=== PATIENT | male | born 1995 | race Caucasian/White ===

== ENCOUNTER 2017-04-05 17:52 | Emergency (ER) | payer BC ==
[~2017-04-05] VITALS: Ht 182.9 cm; Wt 64.0 kg
[2017-04-05 18:03] VITALS: PULSE 96; RESP 16; TEMP 100; O2SAT 99
[2017-04-05] MEDS ORDERED: SODIUM CHLOR 0.9% 1000 ML INJ 1,000 ML IV ONE ×2 (18:30→20:00)
[2017-04-05] MEDS ORDERED: KETOROLAC TROMETHAMINE 30 MG/ML (IVP) VIAL IV PUSH ONE ×2 (18:30→20:00)
[2017-04-05 18:32] VITALS: O2SAT 98
--- NOTE | 2017-04-05 18:32 | PD ---
HPI Chief Complaint: Cold / Flu Symptoms Time Seen by Provider: 18:23 Travel History International Travel<30 days: No Contact w/Intl Traveler<30days: No Traveled to known affect area: No History of Present Illness HPI PATIENT WAS AROUND KIDS WHO WERE FLU POSITIVE A FEW DAYS AGO, AND THEN 2 DAYS LATER HE STARTED TO HAVE SEVERE LEG CRAMPS AND N/V WITH TAKING MOTRIN, MOTHER IS A PHYSICIAN IN [place]. AND CHILD HAS BEEN ON TAMIFLU OVER THE PAST 2 DAYS. NO PREVIOUS VISITS ATTEMPTED TO CHECK CHART, DID TAXICAB DISPATCHER NOTES PMHX: DENIES PSHX: DENIES ALL: DENIES PFSH Social History Alcohol Use: No Tobacco Use: No Allergies-Medications (Allergen,Severity, Reaction): Coded Allergies: No Known Allergies (Unverified , 04/05/17) Reported Meds & Prescriptions Reported Meds & Active Scripts Active Ketorolac (Ketorolac Tromethamine) 10 Mg Tab 10 Mg PO Q6HR PRN Zofran Odt (Ondansetron Odt) 4 Mg Tab 4 Mg SL Q6HR PRN Reported Dulera 120 Act Inh (Mometasone-Formoterol 120 Act Inh) 200-5 Mcg/Act Inh 2 Puff INH BID Tamiflu (Oseltamivir Phosphate) 45 Mg Cap 45 Mg PO DAILY Review of Systems Except as stated in HPI: all other systems reviewed are Neg General / Constitutional: No: Fever Eyes: No: Visual changes HENT: No: Headaches Cardiovascular: No: Chest Pain or Discomfort Respiratory: No: Shortness of Breath Gastrointestinal: Positive: Nausea, Vomiting Genitourinary: No: Dysuria Musculoskeletal: Positive: Myalgias Skin: No Rash Neurologic: No: Weakness Psychiatric: No: Depression Endocrine: No: Polydipsia Hematologic/Lymphatic: No: Easy Bruising Physical Exam Narrative GENERAL: SKIN: Warm and dry. NO RASH HEAD: Atraumatic. Normocephalic. EYES: Pupils equal and round. No scleral icterus. No injection or drainage. ENT: No nasal bleeding or discharge. Mucous membranes pink and moist. NECK: Trachea midline. No JVD. CARDIOVASCULAR: Regular rate and rhythm. RESPIRATORY: No accessory muscle use. Clear to auscultation. Breath sounds equal bilaterally. GASTROINTESTINAL: Abdomen soft, non-tender, nondistended. Hepatic and splenic margins not palpable. MUSCULOSKELETAL: Extremities without clubbing, cyanosis, or edema. No obvious deformities. NO FIRM COMPARTMENTS PALPATED BUT TENDER TO TOUCH NEUROLOGICAL: Awake and alert. No obvious cranial nerve deficits. Motor grossly within normal limits. Five out of 5 muscle strength in the arms and legs. Normal speech. PSYCHIATRIC: Appropriate mood and affect; insight and judgment normal. Data Data Last Documented VS Vital Signs Date Time Temp Pulse Resp B/P (MAP) Pulse Ox O2 Delivery O2 Flow Rate FiO2 04/05/17 21:18 99.0 57 14 110/48 (68) 97 04/05/17 19:06 Room Air Orders Orders Complete Blood Count With Diff (04/05/17:) Comprehensive Metabolic Panel (04/05/17) Creatine Kinase (Cpk) (04/05/17) Blood Culture (04/05/17) C-Reactive Protein (Crp) (04/05/17) Urinalysis - C+S If Indicated (04/05/17 18:23) Iv Access Insert/Monitor (04/05/17 18:23) Ecg Monitoring (04/05/17:) Oximetry (04/05/17) Sodium Chlor 0.9% 1000 Ml Inj (Ns 1000 M (04/05/17 18:30) Ketorolac Inj (Toradol Inj) (04/05/17 18:30) Lipase (04/05/17:23) Thyroid Stimulating Hormone (04/05/17:23) Sodium Chlor 0.9% 1000 Ml Inj (Ns 1000 M (04/05/17 20:00) Ketorolac Inj (Toradol Inj) (04/05/17 20:00) Ed Discharge Order (04/05/17 20:59) Labs Laboratory Tests Test 04/05/17 18:50 04/05/17 19:45 White Blood Count 10.7 TH/MM3 Red Blood Count 4.84 MIL/MM3 Hemoglobin 13.0 GM/DL Hematocrit 39.9 % Mean Corpuscular Volume 82.4 FL Mean Corpuscular Hemoglobin 26.8 PG Mean Corpuscular Hemoglobin Concent 32.6 % Red Cell Distribution Width 12.6 % Platelet Count 234 TH/MM3 Mean Platelet Volume 9.1 FL Neutrophils (%) (Auto) 80.4 % Lymphocytes (%) (Auto) 10.6 % Monocytes (%) (Auto) 8.5 % Eosinophils (%) (Auto) 0.0 % Basophils (%) (Auto) 0.5 % Neutrophils # (Auto) 8.6 TH/MM3 Lymphocytes # (Auto) 1.1 TH/MM3 Monocytes # (Auto) 0.9 TH/MM3 Eosinophils # (Auto) 0.0 TH/MM3 Basophils # (Auto) 0.1 TH/MM3 CBC Comment DIFF FINAL Differential Comment Blood Urea Nitrogen 8 MG/DL Creatinine 1.20 MG/DL Random Glucose 111 MG/DL Total Protein 8.2 GM/DL Albumin 3.8 GM/DL Calcium Level 8.8 MG/DL Alkaline Phosphatase 104 U/L Aspartate Amino Transf (AST/SGOT) 19 U/L Alanine Aminotransferase (ALT/SGPT) 20 U/L Total Bilirubin 0.7 MG/DL Sodium Level 133 MEQ/L Potassium Level 4.0 MEQ/L Chloride Level 100 MEQ/L Carbon Dioxide Level 23.5 MEQ/L Anion Gap 10 MEQ/L Estimat Glomerular Filtration Rate 78 ML/MIN Total Creatine Kinase 128 U/L C-Reactive Protein 3.50 MG/DL Lipase 56 U/L Thyroid Stimulating Hormone 3rd Gen 3.000 uIU/ML Urine Color YELLOW Urine Turbidity CLEAR Urine pH 7.0 Urine Specific [place] 1.016 Urine Protein NEG mg/dL Urine Glucose (UA) NEG mg/dL Urine Ketones 40 mg/dL Urine Occult Blood TRACE Urine Nitrite NEG Urine Bilirubin NEG Urine Leukocyte Esterase NEG Urine RBC 0-3 /hpf Urine WBC 0-2 /hpf Urine Squamous Epithelial Cells 0-5 /hpf Microscopic Urinalysis Comment CULT NOT INDICATED MDM Medical Decision Making Medical Screen Exam Complete: Yes Emergency Medical Condition: Yes Medical Record Reviewed: Yes Differential Diagnosis FLU V RHABDO V MYALGIAS V PANCREATITIS V HEPATITIS V DEHYDRATION Narrative Course NO RHABDO, PER PARENT NEGATIVE FLU TEST AT URGENT CARE PRIOR TO COMING HERE, NL LIVER/KIDNEY/PANCREAS FUNCTIONS, NO ANEMIA, MILD KETONURIA C/W DEHYDRATION. Diagnosis Primary Impression: VIRAL SYNDROME WITH MYALGIAS AND DEHYDRATION Patient Instructions: Dehydration (GEN), Full Liquid Diet (GEN), General Instructions Scripts Ketorolac (Ketorolac) 10 Mg Tab 10 MG PO Q6HR Y for PAIN, #12 TAB 0 Refills Prov: Rick Camilo MD 04/05/17 Ondansetron Odt (Zofran Odt) 4 Mg Tab 4 MG SL Q6HR Y for Nausea/Vomiting, #20 TAB 0 Refills Prov: Rick Camilo MD 04/05/17 Disposition: 01 DISCHARGE HOME Condition: Stable Rick Camilo MD Apr 05, 2017 18:32
[2017-04-05] MEDS ORDERED: OSEL45 PO (18:36)
[2017-04-05] MEDS ORDERED: DULE200A INH (18:36)
[2017-04-05 19:06] VITALS: BP 127/55; PULSE 65; RESP 16; O2SAT 100
[2017-04-05 19:18] LABS: CHLORIDE 100 MEQ/L (98-107); SODIUM (NA) 133 MEQ/L (136-145)
[2017-04-05 19:22] LABS: ANION GAP 10 MEQ/L (5-15); BICARBONATE 23.5 MEQ/L (21.0-32.0)
[2017-04-05 19:23] LABS: BLOOD UREA NITROGEN 8 MG/DL (7-18)
[2017-04-05 19:25] LABS: ALT (GPT) 20 U/L (9-52); AST (GOT) 19 U/L (15-39); GLOMERULAR FILTRATION RATE 78 ML/MIN (>89)
[2017-04-05 19:27] LABS: TOTAL BILIRUBIN ADULT 0.7 MG/DL (0.2-1.0)
[2017-04-05 19:28] LABS: ALKALINE PHOSPHATASE 104 U/L (45-117); CREATINE KINASE 128 U/L (39-308)
[2017-04-05 19:41] VITALS: RESP 15
[2017-04-05 19:45] LABS: AUTOMATED NEUTROPHIL # 8.6 TH/MM3 (1.8-7.7); BASOPHIL # 0.1 TH/MM3 (0-0.2); BASOPHIL % 0.5 % (0.0-2.0); HEMATOCRIT 39.9 % (39.0-51.0); LYMPH % 10.6 % (9.0-44.0); LYMPHOCYTE # 1.1 TH/MM3 (1.0-4.8); MEAN CELL VOLUME 82.4 FL (80.0-100.0); MEAN CORPUSCULAR HEMOGLOBIN 26.8 PG (27.0-34.0); MEAN CORPUSCULAR HGB CONC 32.6 % (32.0-36.0); MONO % 8.5 % (0.0-8.0); NEUT % 80.4 % (16.0-70.0); PLATELET COUNT 234 TH/MM3 (150-450); RED BLOOD COUNT 4.84 MIL/MM3 (4.50-5.90); RED CELL DISTRIBUTION WIDTH 12.6 % (11.6-17.2); WHITE BLOOD COUNT 10.7 TH/MM3 (4.0-11.0)
[2017-04-05 19:47] LABS: HEMO FLAGS DIFF FINAL
[2017-04-05 19:51] LABS: GLUCOSE,URINE NEG (NEG); KETONE, URINE 40 mg/dL (NEG); NITRITE,URINE NEG (NEG)
[2017-04-05 19:59] LABS: BLOOD, URINE TRACE (NEG)
[2017-04-05 20:00] LABS: SQUAMOUS EPITHELIAL CELL URINE 0-5 /hpf (0-5); URINE COLOR YELLOW (YELLW/STRAW)
[2017-04-05 20:01] LABS: COMMENT (UR) CULT NOT INDICATED; CULTURE IF INDICATED CULT NOT INDICATED; RBC, URINE 0-3 /hpf (0-3); WBC, URINE 0-2 /hpf (0-5)
[2017-04-05] MEDS ORDERED: ZOFR4TAB3 SL (20:58)
[2017-04-05] MEDS ORDERED: KETO10 PO (20:58)
[2017-04-05 21:18] VITALS: BP 110/48; TEMP 99
== END 2017-04-05 21:24 | disposition home or self-care (01) ==
LOC: PHED 17:52
DX: B34.9 Viral infection, unspecified (principal); E86.0 Dehydration; M79.1 Myalgia
CPT/HCPCS: 80053; 81001; 82550; 83690; 84443; 85025; 86140; 87040; 96361; 96374; 96376; 99284; J1885; J7030